=== PATIENT | female | born 2000 | race Two or more races ===

== ENCOUNTER 2022-03-28 12:55 | Emergency (ER) | payer OTHER ==
[~2022-03-28] VITALS: Ht 162.6 cm; Wt 47.6 kg
== END 2022-03-28 22:52 | disposition home or self-care (01) ==
LOC: ER 12:55
DX: O20.9 Hemorrhage in early pregnancy, unspecified (principal); Z3A.00 Weeks of gestation of pregnancy not specified; Z88.6 Allergy status to analgesic agent

== ENCOUNTER 2022-09-26 13:11 | Emergency (ER) | payer OTHER ==
[~2022-09-26] VITALS: Ht 162.6 cm; Wt 47.2 kg
== END 2022-09-26 15:58 | disposition home or self-care (01) ==
LOC: ER 13:11
DX: O26.892 Other specified pregnancy related conditions, second trimester (principal); R53.1 Weakness; Z3A.14 14 weeks gestation of pregnancy; Z88.6 Allergy status to analgesic agent; Z86.2 Personal history of diseases of the blood and blood-forming organs and certain disorders involving the immune mechanism

== ENCOUNTER 2023-03-20 13:00 | Inpatient (IN) | payer OTHER ==
[~2023-03-20] VITALS: Ht 162.6 cm; Wt 2.3 kg
[2023-04-04] MEDS ORDERED: IRON325 MG PO (04:57)
[2023-04-04] MEDS ORDERED: PRENATAL TABLE1 EAC1 PO (04:57)
== END 2023-04-07 14:21 | disposition home or self-care (01) | DRG 788 ==
LOC: OB/GYN 03-29 13:00 → LDR 04-04 03:22 → O/R 04-04 10:01 → OB/GYN 04-04 10:34
PROVIDERS: ADMIT Specialist; ATTEND Specialist
PROC: 4A1HXCZ Monitoring of Products of Conception, Cardiac Rate, External Approach (ICD-10-PCS; 2023-04-04)
PROC: 10D00Z1 Extraction of Products of Conception, Low, Open Approach (ICD-10-PCS; principal; 2023-04-04 06:30)
DX: O36.8330 Maternal care for abnormalities of the fetal heart rate or rhythm, third trimester, not applicable or unspecified (principal); O99.824 Streptococcus B carrier state complicating childbirth; Z3A.40 40 weeks gestation of pregnancy; Z37.0 Single live birth; Z20.822 Contact with and (suspected) exposure to COVID-19